=== PATIENT | male | born 1990 | race Caucasian/White ===

== ENCOUNTER → 2020-03-28 | Outpatient (CLI) | payer OTHER ==
--- NOTE | 2020-03-29 09:52 | CT ---
EXAM: Abdoment/Pelvis w/o Contrast CLINICAL HISTORY: GEN ABD PN COMPARISON STUDY: None TECHNIQUE: Non-oral, non-IV contrast CT images were obtained through the abdomen and pelvis. Coronal and sagittal reconstructions were acquired. FINDINGS: The visible portion of the chest shows clear lungs. The heart is not enlarged. The aorta is non-dilated. Solid organ evaluation is limited without IV contrast administration. The unenhanced images of the liver, spleen, pancreas, adrenal glands and kidneys demonstrate no visible abnormality. The gallbladder is present. Bowel evaluation is limited without oral contrast administration. There is no bowel obstruction/dilatation. The appendix is visible and negative. There are no mesenteric inflammatory changes. Pelvic structures are negative. There are no significant bone abnormalities. CONCLUSION: NEGATIVE CT ABDOMEN AND PELVIS WITHOUT CONTRAST. LIMITATIONS DISCUSSED. This exam was performed according to our departmental dose-optimization program, which includes automated exposure control, adjustment of the mA and/or kV according to patient size and/or use of iterative reconstruction technique. . Electronically signed by: Gage Urena MD 03/29/2020 9:50 AM CDT
== END ==
LOC: LAB.O 11:40
PROVIDERS: ATTEND Nurse Practitioner Family
DX: R10.84 Generalized abdominal pain (principal)